=== PATIENT | female | born 1940 | race Caucasian/White ===

== ENCOUNTER 2017-01-16 12:28 | Outpatient (CLI) | payer MEDICARE ==
[2017-01-16 16:51] LABS: Thyroid Stimulating Hormone 2.8008 uIU/mL (0.35-4.94)
[2017-01-16 17:18] LABS: Hemoglobin 11.1 g/dL (12.0-16.0); Lymphocytes 30 % (21-51); MDiff Complete? YES; Macrocytosis SLIGHT = 6-15 cells (100X) (0-5/hpf); Mean Corpuscular HGB CONC 33.6 g/dL (32.0-36.0); Mean Corpuscular Hemoglobin 34.1 pg (27.0-31.0); Mean Platelet Volume 6.9 fL (7.4-10.4); Monocytes 6 % (0-10); Neutrophil 63 % (42-75); Platelet Count 191 thou/uL (130-400); RBC Distribution Width 11.3 % (11.5-14.5); Red Blood Cell (RBC) Count 3.26 mill/uL (4.20-5.40); Rouleaux Formation SLIGHT = 1-5 cells (100X) (None Seen); White Blood Cell (WBC) Count 4.4 thou/uL (4.8-10.8)
[2017-01-16 17:56] LABS: ALT (SGPT) 15 U/L (0-55); AST (SGOT) 23 U/L (5-34); Albumin 4.3 g/dL (3.4-4.8); Alkaline Phosphatase 89 U/L (40-150); Anion Gap 14 mmol/L (10-20); BUN (Urea Nitrogen) 5 mg/dL (9.8-20.1); Bilirubin, Total 0.6 mg/dL (0.2-1.2); Calc. Creatinine Clearance 0 mL/min (70-130); Calcium 9.5 mg/dL (7.8-10.44); Carbon Dioxide 24 mmol/L (23-31); Cardiac Risk 2.6 (Less than 4.5); Chloride 104 mmol/L (98-107); Cholesterol 172 mg/dL (< 200 Desired); Estimated GFR-MDRD 88; Globulin 1.9 g/dL (2.4-3.5); Glucose 81 mg/dL (83-110); HDL Cholesterol 67 mg/dL (>60 Neg Risk); LDL Cholesterol, Calculated 94 mg/dL; Potassium 4.2 mmol/L (3.5-5.1); Protein, Total 6.2 g/dL (5.8-8.1); Sodium 138 mmol/L (136-145); Triglycerides 55 mg/dL (Less than 150)
[2017-01-16 18:52] LABS: Iron 85 ug/dL (50-170); Iron Binding Capacity, Total 285 mcg/dL (265-497)
[2017-01-16 19:58] LABS: Ferritin 239.36 ng/mL (10-291)
== END 2017-01-16 12:29 ==
LOC: LABLEX 12:28
PROVIDERS: ATTEND Family Medicine
DX: E03.9 Hypothyroidism, unspecified (principal); E78.00 Pure hypercholesterolemia, unspecified; D64.9 Anemia, unspecified
CPT/HCPCS: 80053; 80061; 82728; 83540; 83550; 84443; 85025

== ENCOUNTER 2017-03-22 08:47 | Outpatient (CLI) | payer MEDICARE ==
[2017-03-22 09:35] LABS: Calc. Creatinine Clearance 0 mL/min (70-130); Estimated GFR-MDRD Greater than 90
--- NOTE | 2017-03-22 12:57 | CT ---
CT ABDOMEN AND PELVIS WITH CONTRAST: Date: 03-22-[address] of the abdomen and pelvis was performed. Oral and IV contrast were given. After axial slic es were done, coronal reconstructions were obtained. FINDINGS: No acute infiltrates or effusions were seen in the visible lung bases. There may be a few areas of s carring in the bases. The left lobe of this patient's liver is quite large and extends well across the midline over into t he left upper quadrant, even wrapping around the lateral side of the spleen. In spite of this abnorm al size, the parenchyma does not appear abnormal. There is no sign of mass or dilated ducts. The way that the vasculature runs into this part of the liver, it seems likely that this is a very much a l mina standing situation. The spleen itself is not exceptionally large. No abnormalities of the pancre as were seen. The adrenal glands are not seen exceptionally well, but no gross mass was visible. The kidneys showed no mass or hydronephrosis. The abdominal aorta is calcified but is normal in caliber . There is an abundance of fecal material in the colon and some mild gaseous distension, but it is not frankly obstructed. The rectal vault is especially dilated with gas and some liquid stool. Again, t here is no sign of cedrick obstruction. The small bowel is not dilated. There is an overall paucity of body fat, but no gross inflammatory changes around bowel were indicated. No free air or free fluid was seen. CT of the pelvis showed no pelvic masses, free fluid, or acute inflammatory changes. The urinary josiah dder is distended. The bony structures of the pelvis showed some degenerative change but no acute fi ndings. IMPRESSION: 1. Large liver with an exceptionally large left lobe that wraps over into the left upper quadrant an d around the lateral side of the spleen. This appears to be a long standing situation, but internall y, one sees no focal parenchymal abnormalities in the liver. 2. Not mentioned above but present is a dense calcification in the region of the gallbladder which i s difficult to separate out from the contrast in the surrounding bowel. My suspicion is that it is a small contracted gallbladder with stones in it, but this should be correlated with the clinical his tory and possibly an ultrasound. 3. Large amounts of stool in the colon which shows some mild nonspecific dilatation. 4. Other findings as listed above. POS: HOME
--- NOTE | 2017-03-22 13:14 | RAD ---
SCOLIOSIS STUDY: Date: 03-22-17 FINDINGS: An S-shaped thoracolumbar scoliosis is present. The thoracic component is convex right with an angle of curvature about 13 degrees. The lumbar component is convex left with an angle of curvature of ab out 18 degrees. While it is possible that this density can be a small mass that is covered up by the bones, I feel the odds are greatest that it superimposed densities. If further work up is needed, a n elective CT would need to be done. IMPRESSION: Scoliosis as noted with no definite acute findings. See comments regarding lungs. POS: HOME
== END 2017-03-22 08:48 | disposition home or self-care (01) ==
LOC: BURCT 08:47
PROVIDERS: ATTEND Family Medicine
DX: Z01.812 Encounter for preprocedural laboratory examination (principal); M43.9 Deforming dorsopathy, unspecified; R63.4 Abnormal weight loss; R79.89 Other specified abnormal findings of blood chemistry; R19.00 Intra-abdominal and pelvic swelling, mass and lump, unspecified site; K82.8 Other specified diseases of gallbladder; R16.0 Hepatomegaly, not elsewhere classified; K59.39 Other megacolon; K56.41 Fecal impaction
CPT/HCPCS: 36415; 72081; 74177; 82565